=== PATIENT | male | born 1960 | race Caucasian/White ===

== ENCOUNTER 2019-11-03 11:25 | Observation (INO) | payer BC, OTHER ==
[2019-11-03] MEDS ORDERED: Nitroglycerin 2% Oint 1 GM UD Packet TOP ONE (11:34)
[2019-11-03] MEDS ORDERED: Sodium Chloride 0.9% 2.5 ML Syringe FLUSH PRN (11:34)
[2019-11-03] MEDS ORDERED: Sodium Chloride 0.9% 10 ML Syringe FLUSH PRN (11:34)
[2019-11-03] MEDS ORDERED: Aspirin 81 MG Tab.Chew PO ONE (11:34)
--- NOTE | 2019-11-03 11:34 | EDM.PDOC ---
ED HPI GENERAL MEDICAL PROBLEM - General Chief Complaint: Chest Pain Stated Complaint: CHEST PAIN Time Seen by Provider: 11/03/19 11:28 Source of Information: Reports: Patient - History of Present Illness INITIAL COMMENTS - FREE TEXT/NARRATIVE: Patient presents to the ER for the main complaint of chest pain. 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 He is describes a general lightheaded sensation without a headache, and no vertiginous sensation. He continues to just not feel well and soon thereafter he started to develop a central chest pressure like something was squeezing him on the inside with shortness of breath. No fevers or chills, no coughing, no abdominal pain, no palpitations, no other acute complaints. Bystanders gave the patient 1 low- dose aspirin and then his drove him here. Symptoms started about 45 minutes prior to arrival. He has never had anything like this before. - Related Data Allergies Allergy/AdvReac Type Severity Reaction Status Date / Time No Known Allergies Allergy Verified 11/03/19 11:28 Home Meds: Home Meds Rosuvastatin [Crestor] 10 mg PO DAILY 11/03/19 [History] metFORMIN [Glucophage XR] 500 mg PO BIDMEALS 11/03/19 [History] ED ROS GENERAL - Review of Systems Review Of Systems: See Below Free Text/Narrative/Comment: Positive for chest pain, positive shortness of breath, positive for lightheadedness, negative for fevers, negative for chills, negative for cough, negative for hemoptysis, all other Positives and pertinent negatives as per HPI. All other pertinent systems were reviewed and are negative ED EXAM, GENERAL - Physical Exam Exam: See Below Free Text/Narrative:: Constitutional: Nontoxic but looks like he does not feel well, appears very uncomfortable HEENT.: Normocephalic, PERRL, EOMI, External ears are atraumatic, nares are patent without epistaxis Neck: Normal range of motion, Trachea Midline, No stridor Respiratory.: No respiratory distress, No tachypnea, Lungs Clear to Auscultation bilaterally without wheezes, rales, or rhonchi Cardiovascular.: Regular rate and Rhythm without murmurs, rubs, or gallops, good peripheral perfusion GI: Abdomen soft and non tender, no masses, no rebound, rigidity, or guarding, mildly obese Genital Urinary: Deferred Musculoskeletal: Good range of motion. All 4 extremities present and atraumatic , no edema Back: Full Range of Motion Skin: Warm, Dry, Color is ethnicity appropriate, No acute rash. Lymphatic: No lymphadenopathy noted Neurological: Alert, Awake and oriented x 3, No focal deficits noted appreciate , GCS 15 Psych: Affect, Judgement, mood normal Course - Vital Signs Text/Narrative:: The patient's lungs are clear, he is bradycardic, without any cough or anything else to suggest pulmonary problems such as a pneumonia, pneumothorax, pulmonary embolism, etc. Patient does have a heart score of 5, at the very least he is a moderate risk for acute coronary syndrome. ECG The ECG was read and interpreted by me. There are p waves before every QRS with a ventricular rate of 54. The CO, QRS, and QT intervals are all normal. [place] is normal. ST segments are baseline and the T wave morphology is normal. Final interpretation is a normal Sinus rhythm and a normal ECG. X-rays are reviewed and interpreted by me -are no pulmonary infiltrates, pleural effusions, thoracic mass or any acute pathology. Has received nitro and the chest pain is gone with 1 inch of nitro paste. Thing above in the negative troponin the patient will be admitted for observation for chest pain rule out and reevaluation and treatment as appropriate. Critical care time less than 30 minutes Last Recorded V/S: Last Vital Signs Temp 36.3 C 11/03/19 11:30 Pulse 56 L 11/03/19 11:30 Resp 22 H 11/03/19 11:30 BP 161/79 H 11/03/19 11:30 Pulse Ox 100 11/03/19 11:30 - Orders/Labs/Meds Orders: Active Orders 24 hr Category Date Time Status Admission Status [Patient Status] [ADT] Stat ADT 11/03/19 12:47 Active Cardiac Monitoring [RC] . DIRECTED Care 11/03/19 11:34 Ordered EKG Documentation Completion [RC] STAT Care 11/03/19 11:34 Ordered Pulse Oximetry [RC] ASDIRECTED Care 11/03/19 11:34 Ordered Sodium Chloride 0.9% [Saline Flush] Med 11/03/19 11:34 Ordered 10 ml FLUSH ASDIRECTED PRN Sodium Chloride 0.9% [Saline Flush] Med 11/03/19 11:34 Ordered 2.5 ml FLUSH ASDIRECTED PRN Saline Lock Insert [OM.PC] Stat Oth 11/03/19 11:34 Ordered Medication Orders Sodium Chloride (Saline Flush) 10 ml FLUSH ASDIRECTED PRN PRN Reason: Keep Vein Open Last Admin: 11/03/19 11:51 Dose: 10 ml Sodium Chloride (Saline Flush) 2.5 ml FLUSH ASDIRECTED PRN PRN Reason: Keep Vein Open Last Admin: 11/03/19 11:51 Dose: 2.5 ml Labs: Laboratory Tests 11/03/19 11/03/19 Range/Units 11:30 11:30 WBC 5.93 (4.0-11.0) K/uL RBC 4.92 (4.50-5.90) M/uL Hgb 14.8 (13.0-17.0) g/dL Hct 43.7 (38.0-50.0) % MCV 88.8 (80.0-98.0) fL MCH 30.1 (27.0-32.0) pg MCHC 33.9 (31.0-37.0) g/dL RDW Std Deviation 40.7 (28.0-62.0) fl RDW Coeff of Alissa 13 (11.0-15.0) % Plt Count 181 (150-400) K/uL MPV 10.10 (7.40-12.00) fL Neut % (Auto) 48.1 (48.0-80.0) % Lymph % (Auto) 41.7 H (16.0-40.0) % [place] % (Auto) 6.7 (0.0-15.0) % Eos % (Auto) 3.0 (0.0-7.0) % Baso % (Auto) 0.5 (0.0-1.5) % Neut # (Auto) 2.9 (1.4-5.7) K/uL Lymph # (Auto) 2.5 H (0.6-2.4) K/uL [place] # (Auto) 0.4 (0.0-0.8) K/uL Eos # (Auto) 0.2 (0.0-0.7) K/uL Baso # (Auto) 0.0 (0.0-0.1) K/uL Nucleated RBC % 0.0 /100WBC Nucleated RBCs # 0 K/uL Sodium 138 (136-148) mmol/L Potassium 3.8 (3.5-5.1) mmol/L Chloride 101 (98-107) mmol/L Carbon Dioxide 26.8 (21.0-32.0) mmol/L BUN 13 (7.0-18.0) mg/dL Creatinine 1.2 (0.8-1.3) mg/dL Est Cr Clr Drug Dosing 62.54 mL/min Estimated GFR (MDRD) > 60.0 ml/min Glucose 140 H (74-106) mg/dL Calcium 9.5 (8.5-10.1) mg/dL Total Bilirubin 0.6 (0.2-1.0) mg/dL AST 28 (15-37) IU/L ALT 56 (14-63) IU/L Alkaline Phosphatase 64 (46-116) U/L Troponin I < 0.050 (0.000-0.056) ng/mL Total Protein 7.8 (6.4-8.2) g/dL Albumin 4.3 (3.4-5.0) g/dL Globulin 3.5 (2.6-4.0) g/dL Albumin/Globulin Ratio 1.2 (0.9-1.6) Meds: Medications Generic Name Dose Route Start Last Admin Trade Name Paul PRN Reason Stop Dose Admin Sodium Chloride 10 ml 11/03/19 11:34 11/03/19 11:51 Saline Flush FLUSH 10 ml ASDIRECTED PRN Administration Keep Vein Open Sodium Chloride 2.5 ml 11/03/19 11:34 11/03/19 11:51 Saline Flush FLUSH 2.5 ml ASDIRECTED PRN Administration Keep Vein Open Discontinued Medications Generic Name Dose Route Start Last Admin Trade Name Freq PRN Reason Stop Dose Admin Aspirin 324 mg 11/03/19 11:34 11/03/19 11:51 Aspirin PO 11/03/19 11:35 324 mg ONETIME ONE Administration Nitroglycerin 1 gm 11/03/19 11:34 11/03/19 11:51 Nitro-Bid 2% TOP 11/03/19 11:35 1 gm ONETIME ONE Administration Departure - Departure Time of Disposition: 12:49 Disposition: Refer to Observation Condition: Good Clinical Impression: Chest pain Forms: ED Department Discharge Sepsis Event Note - Focused Exam Vital Signs: Vital Signs Temp Pulse Resp BP Pulse Ox 11/03/19 11:30 36.3 C 56 L 22 H 161/79 H 100 Date Exam was Performed: 11/03/19 Time Exam was Performed: 12:48 - My Orders Last 24 Hours: My Active Orders 11/03/19 11:34 Cardiac Monitoring [RC] . DIRECTED EKG Documentation Completion [RC] STAT Pulse Oximetry [RC] ASDIRECTED Sodium Chloride 0.9% [Saline Flush] 10 ml FLUSH ASDIRECTED PRN Sodium Chloride 0.9% [Saline Flush] 2.5 ml FLUSH ASDIRECTED PRN Saline Lock Insert [OM.PC] Stat 11/03/19 12:47 Admission Status [Patient Status] [ADT] Stat - Assessment/Plan Last 24 Hours: My Active Orders 11/03/19 11:34 Cardiac Monitoring [RC] . DIRECTED EKG Documentation Completion [RC] STAT Pulse Oximetry [RC] ASDIRECTED Sodium Chloride 0.9% [Saline Flush] 10 ml FLUSH ASDIRECTED PRN Sodium Chloride 0.9% [Saline Flush] 2.5 ml FLUSH ASDIRECTED PRN Saline Lock Insert [OM.PC] Stat 11/03/19 12:47 Admission Status [Patient Status] [ADT] Stat
[2019-11-03 12:25] LABS: BLOOD UREA NITROGEN,BUN 13 mg/dL (7.0-18.0); CARBON DIOXIDE,CO2 26.8 mmol/L (21.0-32.0); CHLORIDE,CL 101 mmol/L (98-107); GLUCOSE RANDOM 140 mg/dL (74-106); POTASSIUM,K 3.8 mmol/L (3.5-5.1); SODIUM,NA 138 mmol/L (136-148)
--- NOTE | 2019-11-03 12:26 | CR ---
Chest: Portable view of the chest was obtained. Comparison: Prior chest x-ray of 12/10/07. Heart size and mediastinum are within normal limits for portable technique. Lungs are clear with no acute parenchymal change. Bony structures are grossly intact. Impression: 1. Nothing acute is seen on portable chest x-ray. Diagnostic code #1 This report was dictated in [place] Standard Time
[2019-11-03] MEDS ORDERED: Ondansetron 4 MG/2 ML SDV IVPUSH PRN (13:27)
--- NOTE | 2019-11-03 13:45 | PCM.HP.2 ---
H&P History of Present Illness - General Date of Service: 11/03/19 Admit Problem/Dx: Admission Diagnosis/Problem Admission Diagnosis/Problem Chest pain Source of Information: Patient History Limitations: Reports: No Limitations - History of Present Illness Initial Comments - Free Text/Narative: This 59 year old male with dyslipidemia and DM type 2 presented to the ED today by private vehicle with complaints of near- syncope and chest pain. 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 He reports he felt like he was unable to comprehend what was going on and wasn't able to think right. He felt lightheaded and had to sit down. The class noticed he was acting off and he knew they were asking if he was ok. He was then able to walk out and grab a friend to take over and call his . At this point he started having retrosternal chest pain and felt SOB. He was given ASA by a bystander and came to the ED with his . He reports this has happened in the past, but not to this severity. He has no history of CAD, reports family history of it as well as CVA. He reports never having hypoglycemia. He only drank coffee this morning otherwise no food. He denies abdominal pain, urinary concerns or black and blood bowel movements. He reports history of tobacco use, quit 20 years ago, no alcohol use and no recreational drug use. Reports stress test in 2017, which was negative. In the ED labwork WNL, glucose elevated at 140. Troponin negative. EKG SR with no ST elevation. On the monitor pulse is noted 50-60s, which patient reports is normal for him. CXR negative. He was given ASA and Nitro paste was placed in the ED. He will be admitted for chest pain rule out ACS and near-syncope. Chest pain Pain Score (Numeric/FACES): 3 - Related Data Allergies/Adverse Reactions: Allergies Allergy/AdvReac Type Severity Reaction Status Date / Time No Known Allergies Allergy Verified 11/03/19 11:28 Home Medications: Home Meds Rosuvastatin [Crestor] 10 mg PO DAILY 11/03/19 [History] metFORMIN [Glucophage XR] 500 mg PO BIDMEALS 11/03/19 [History] Past Medical History Cardiovascular History: Reports: None, High Cholesterol. Denies: Afib, Blood Clots/VTE/DVT, CAD, Heart Failure, Hypertension, Stents, Syncope Respiratory History: Reports: None. Denies: COPD Gastrointestinal History: Reports: None Genitourinary History: Reports: None Musculoskeletal History: Reports: Fracture Other Musculoskeletal History: neck Endocrine/Metabolic History: Reports: Diabetes, Type II - Infectious Disease History Infectious Disease History: Reports: C-Difficile, Measles, Mumps - Past Surgical History GI Surgical History: Reports: Appendectomy Social & Family History - Family History Family Medical History: Noncontributory - Tobacco Use Smoking Status *Q: Never Smoker Second Hand Smoke Exposure: No - Caffeine Use Caffeine Use: Reports: Coffee - Alcohol Use Alcohol Use History: No - Recreational Drug Use Recreational Drug Use: No H&P Review of Systems - Review of Systems: Review Of Systems: Comprehensive ROS is negative, except as noted in HPI. General: Reports: No Symptoms. Denies: Fever, Chills, Malaise HEENT: Reports: Other (head still feels foggy). Denies: Headaches, Sinus Congestion, Vertigo Pulmonary: Reports: No Symptoms. Denies: Shortness of Breath Cardiovascular: Reports: Chest Pain (but now resolved.) Gastrointestinal: Reports: No Symptoms. Denies: Abdominal Pain, Black Stool, Bloody Stool Genitourinary: Reports: No Symptoms. Denies: Dysuria, Frequency Musculoskeletal: Reports: No Symptoms Psychiatric: Reports: No Symptoms Neurological: Reports: Dizziness. Denies: Seizure Hematologic/Lymphatic: Reports: No Symptoms Immunologic: Reports: No Symptoms Exam - Exam Exam: See Below - Vital Signs Vital Signs: Last Vital Signs Temp 97.4 F 11/03/19 11:30 Pulse 54 L 11/03/19 12:42 Resp 18 11/03/19 12:42 BP 129/74 11/03/19 12:42 Pulse Ox 97 11/03/19 12:42 Weight: 97.069 kg - Exam General: Alert, Oriented, Cooperative HEENT: Conjunctiva Clear, Pupils Equal Neck: Supple, +2 Carotid Pulse wo Bruit Lungs: Clear to Auscultation, Normal Respiratory Effort Cardiovascular: Regular Rate, Regular Rhythm GI/Abdominal Exam: Normal Bowel Sounds, Soft, Non-Tender Back Exam: Normal Inspection, Full Range of Motion Extremities: Normal Range of Motion, Non-Tender, No Pedal Edema Neurological: Cranial Nerves Intact Neuro Extensive - Mental Status: Alert, Oriented x3, Normal Mood/Affect Psychiatric: Alert, Normal Affect, Hallucinations - Patient Data Lab Results Last 24 hrs: Laboratory Results - last 24 hr 11/03/19 11/03/19 Range/Units 11:30 11:30 WBC 5.93 (4.0-11.0) K/uL RBC 4.92 (4.50-5.90) M/uL Hgb 14.8 (13.0-17.0) g/dL Hct 43.7 (38.0-50.0) % MCV 88.8 (80.0-98.0) fL MCH 30.1 (27.0-32.0) pg MCHC 33.9 (31.0-37.0) g/dL RDW Std Deviation 40.7 (28.0-62.0) fl RDW Coeff of Alissa 13 (11.0-15.0) % Plt Count 181 (150-400) K/uL MPV 10.10 (7.40-12.00) fL Neut % (Auto) 48.1 (48.0-80.0) % Lymph % (Auto) 41.7 H (16.0-40.0) % [place] % (Auto) 6.7 (0.0-15.0) % Eos % (Auto) 3.0 (0.0-7.0) % Baso % (Auto) 0.5 (0.0-1.5) % Neut # (Auto) 2.9 (1.4-5.7) K/uL Lymph # (Auto) 2.5 H (0.6-2.4) K/uL [place] # (Auto) 0.4 (0.0-0.8) K/uL Eos # (Auto) 0.2 (0.0-0.7) K/uL Baso # (Auto) 0.0 (0.0-0.1) K/uL Nucleated RBC % 0.0 /100WBC Nucleated RBCs # 0 K/uL Sodium 138 (136-148) mmol/L Potassium 3.8 (3.5-5.1) mmol/L Chloride 101 (98-107) mmol/L Carbon Dioxide 26.8 (21.0-32.0) mmol/L BUN 13 (7.0-18.0) mg/dL Creatinine 1.2 (0.8-1.3) mg/dL Est Cr Clr Drug Dosing 62.54 mL/min Estimated GFR (MDRD) > 60.0 ml/min Glucose 140 H (74-106) mg/dL Calcium 9.5 (8.5-10.1) mg/dL Total Bilirubin 0.6 (0.2-1.0) mg/dL AST 28 (15-37) IU/L ALT 56 (14-63) IU/L Alkaline Phosphatase 64 (46-116) U/L Troponin I < 0.050 (0.000-0.056) ng/mL Total Protein 7.8 (6.4-8.2) g/dL Albumin 4.3 (3.4-5.0) g/dL Globulin 3.5 (2.6-4.0) g/dL Albumin/Globulin Ratio 1.2 (0.9-1.6) Result Diagrams: 11/03/19 11:30 11/03/19 11:30 EKG INTERPRETATION EKG Date: 11/03/19 Rhythm: NSR P-Wave: Present QRS: Normal ST-T: Normal QT: Normal Sepsis Event Note - Evaluation Sepsis Screening Result: No Definite Risk - Focused Exam Vital Signs: Vital Signs Temp Pulse Resp BP Pulse Ox 11/03/19 12:42 54 L 18 129/74 97 11/03/19 12:12 55 L 18 136/71 95 11/03/19 11:30 97.4 F 56 L 22 H 161/79 H 100 Date Exam was Performed: 11/03/19 Time Exam was Performed: 13:32 - Problem List (1) Chest pain SNOMED Code(s): 70778753 ICD Code: R07.9 - CHEST PAIN, UNSPECIFIED Status: Acute Current Visit: Yes (2) Near syncope SNOMED Code(s): 187491493 ICD Code: R55 - SYNCOPE AND COLLAPSE Status: Acute Current Visit: Yes (3) Type 2 diabetes mellitus SNOMED Code(s): 84014949 ICD Code: E11.9 - TYPE 2 DIABETES MELLITUS WITHOUT COMPLICATIONS Status: Chronic Current Visit: Yes (4) Dyslipidemia SNOMED Code(s): 352002717 ICD Code: E78.5 - HYPERLIPIDEMIA, UNSPECIFIED Status: Chronic Current Visit: Yes Problem List Initiated/Reviewed/Updated: Yes Orders Last 24hrs: Active Orders 24 hr Category Date Time Status Admission Status [Patient Status] [ADT] Stat ADT 11/03/19 12:47 Active Blood Glucose Check, Bedside [RC] TIDAC Care 11/03/19 13:31 Ordered Cardiac Monitoring [RC] . DIRECTED Care 11/03/19 11:34 Active Communication Order [RC] ROUTINE Care 11/03/19 13:30 Ordered Intake and Output [RC] QSHIFT Care 11/03/19 13:27 Ordered Orthostatic Vital Signs [RC] ASDIRECTED Care 11/03/19 13:31 Ordered Oxygen Therapy [RC] PRN Care 11/03/19 13:27 Ordered Telemetry Monitoring [Cardiac Monitoring] [RC] . Care 11/03/19 13:30 Ordered DIRECTED Up With Assistance [RC] ASDIRECTED Care 11/03/19 13:27 Ordered VTE/DVT Education [RC] PER UNIT ROUTINE Care 11/03/19 13:27 Ordered Vital Signs [RC] Q4H Care 11/03/19 13:27 Ordered Heart Healthy Diet [DIET] Diet 11/03/19 Lunch Ordered Head wo Cont [CT] Urgent Exams 11/03/19 13:27 Ordered Acetaminophen [Tylenol] Med 11/03/19 13:27 Ordered 650 mg PO Q4H PRN Insulin Aspart [NovoLOG] Med 11/03/19 17:00 Ordered See Protocol SUBCUT TIDAC Ondansetron [Zofran] Med 11/03/19 13:27 Ordered 4 mg IVPUSH Q4H PRN Sodium Chloride 0.9% [Saline Flush] Med 11/03/19 11:34 Active 10 ml FLUSH ASDIRECTED PRN Sodium Chloride 0.9% [Saline Flush] Med 11/03/19 11:34 Active 2.5 ml FLUSH ASDIRECTED PRN Saline Lock Insert [OM.PC] Stat Oth 11/03/19 11:34 Ordered Resuscitation Status Routine Resus Stat 11/03/19 13:27 Ordered Medication Orders Acetaminophen (Tylenol) 650 mg PO Q4H PRN PRN Reason: Pain (mild 1-3) Insulin Aspart (Novolog) 0 unit SUBCUT TIDAC TOÑO; Protocol Ondansetron HCl (Zofran) 4 mg IVPUSH Q4H PRN PRN Reason: Nausea Sodium Chloride (Saline Flush) 10 ml FLUSH ASDIRECTED PRN PRN Reason: Keep Vein Open Last Admin: 11/03/19 11:51 Dose: 10 ml Sodium Chloride (Saline Flush) 2.5 ml FLUSH ASDIRECTED PRN PRN Reason: Keep Vein Open Last Admin: 11/03/19 11:51 Dose: 2.5 ml Assessment/Plan Comment:: This 59 year old male admitted with chest and near syncope 1. Chest pain: Will trend troponins and monitor on Telemetry. Obtain lipid panel and A1c to monitor treatment of these. Is already on statin and known DM. Will need outpatient stress test. 2. Near syncope: Will obtain head CT and orthostatic VS. Monitor on telemetry for arrhythmia. May consider Zio patch on discharge. No beta snehal for home medications. 3. DM Type 2: Hold PO medications, give Novolog SSI with meals TIDAC. Continue Lisinopril for renal protection. Continue statin. VTE prophylaxis: SCDs Dispo: 1 day - Mortality Measure Prognosis:: Good
--- NOTE | 2019-11-03 15:25 | CT ---
Head CT Technique: Multiple axial sections through the brain were obtained. Intravenous contrast was not utilized. Comparison: No prior intracranial imaging is available. Findings: Ventricles along with basal cisterns and sulci over the convexities are within normal limits for the patient's age. No abnormal parenchymal densities are seen. No evidence of intracranial hemorrhage. No midline shift or mass effect is appreciated. Bone window settings were reviewed which shows mild mucosal thickening within the ethmoid and within both maxillary sinuses. Mastoid sinuses are clear. No acute calvarial abnormality is appreciated. Mild atherosclerotic calcification is seen within the carotid siphon. Impression: 1. Sinus findings most likely chronic. Minimal senescent change. 2. No acute intracranial abnormality is appreciated. Diagnostic code #2 Study was dictated in [place] Standard Time
[2019-11-03 16:21] LABS: HEMOGLOBIN A1C 6.5 % (4.5-6.2)
[2019-11-03] MEDS: Insulin Aspart 100 Units/ML 3 ML Pen SUBCUT SCH (17:13)
[2019-11-03] MEDS: Acetaminophen 325 MG Tab PO PRN (17:18)
[2019-11-03] MEDS ORDERED: Lisinopril 5 MG Tab PO SCH (21:00)
[2019-11-04] MEDS: Acetaminophen 325 MG Tab PO PRN (00:13)
[2019-11-04] MEDS: Insulin Aspart 100 Units/ML 3 ML Pen SUBCUT SCH (06:35)
[2019-11-04] MEDS: Rosuvastatin 10 MG Tab PO SCH ×2 (08:33→08:42)
[2019-11-04] MEDS ORDERED: Aspirin 81 MG Tab.Chew PO SCH (09:00)
--- NOTE | 2019-11-04 10:47 | PCM.DCSUM1 ---
<Betsy Leyva - Last Filed: 11/04/19 11:03> Discharge Summary - Hospital Course Brief History: This 59 year old male with dyslipidemia and DM type 2 presented to the ED today by private vehicle with complaints of near- syncope and chest pain. 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 He reports he felt like he was unable to comprehend what was going on and wasn't able to think right. He felt lightheaded and had to sit down. The class noticed he was acting off and he knew they were asking if he was ok. He was then able to walk out and grab a friend to take over and call his . At this point he started having retrosternal chest pain and felt SOB. He was given ASA by a bystander and came to the ED with his . He reports this has happened in the past, but not to this severity. He has no history of CAD, reports family history of it as well as CVA. He reports never having hypoglycemia. He only drank coffee this morning otherwise no food. He denies abdominal pain, urinary concerns or black and blood bowel movements. He reports history of tobacco use, quit 20 years ago, no alcohol use and no recreational drug use. Reports stress test in 2017, which was negative. In the ED labwork WNL, glucose elevated at 140. Troponin negative. EKG SR with no ST elevation. On the monitor pulse is noted 50-60s, which patient reports is normal for him. CXR negative. He was given ASA and Nitro paste was placed in the ED. He will be admitted for chest pain rule out ACS and near-syncope. Diagnosis: Stroke: No - Discharge Data Discharge Date: 11/04/19 Discharge Disposition: Home, Self-Care 01 Condition: Good - Referral to Home Health Primary Care Physician: Colt Alarcon MD - Discharge Diagnosis/Problem(s) (1) Chest pain SNOMED Code(s): 18677921 ICD Code: R07.9 - CHEST PAIN, UNSPECIFIED Status: Acute (2) Near syncope SNOMED Code(s): 675756944 ICD Code: R55 - SYNCOPE AND COLLAPSE Status: Acute (3) Type 2 diabetes mellitus SNOMED Code(s): 80667880 ICD Code: E11.9 - TYPE 2 DIABETES MELLITUS WITHOUT COMPLICATIONS Status: Chronic (4) Dyslipidemia SNOMED Code(s): 823878041 ICD Code: E78.5 - HYPERLIPIDEMIA, UNSPECIFIED Status: Chronic - Patient Instructions Diet: Heart Healthy Diet, Diabetic Diet Activity: No Strenuous Activities Driving: May Drive Today Showering/Bathing: May Shower Notify Provider of: Fever, Increased Pain, Swelling and Redness, Drainage, Nausea and/or Vomiting Other/Special Instructions: Perscription for Glucometer sent, test blood sugar 1 -2 times per week, fasting in the morning. Or as needed for feelings of low blood sugar. - Discharge Plan *PRESCRIPTION DRUG MONITORING PROGRAM REVIEWED*: Not Applicable *COPY OF PRESCRIPTION DRUG MONITORING REPORT IN PATIENT HALIE: Not Applicable Home Medications: Home Meds Lisinopril [Zestril] 2.5 mg PO BEDTIME 11/03/19 [History] Rosuvastatin [Crestor] 10 mg PO BEDTIME 11/03/19 [History] metFORMIN [Glucophage XR] 500 mg PO BEDTIME 11/03/19 [History] Aspirin 81 mg PO DAILY tab.chew 11/04/19 [Rx] Oxygen Therapy Mode: Room Air Patient Handouts: Near-Syncope, [id number], Nonspecific Chest Pain, Easy-to- Read, Cardiopulmonary Exercise Stress Test, [id number], Blood Glucose Monitoring, Adult Referrals: Colt Alarcon MD [Primary Care Provider] - 11/10/19 10:15 am - Discharge Summary/Plan Comment DC Time >30 min.: No Discharge Summary/Plan Comment: Admitting Diagnoses: Chest pain Near syncope Discharge Diagnoses: Chest pain-resolved Near syncope Other PMH: Borderline DM Dyslipidemia Jovi was admitted for episode of near syncope with chest pain. Troponins trended , which were negative and EKG SR to SB with no ST elevation. ACS ruled out. Telemetry showed no arrhythmia or block for cause of near syncope. We did discuss causes which could include hypoglycemia, since he had not eaten in over 14 hours and only drank coffee. Because of this I will send home a glucose meter to monitor fasting BS 1-2 days a week and PRN for hypoglycemia feeling. I will also place ZIO patch to evaluate for arrhythmia. He will be arranged for outpatient stress test as well. No further events overnight, BP well controlled with no medications. He is to return to ED or clinic if concerns should arise. No change to home medications and to follow with PCP in 1 week. - Patient Data Vitals - Most Recent: Last Vital Signs Temp 98.1 F 11/04/19 08:00 Pulse 57 L 11/04/19 08:00 Resp 16 11/04/19 08:00 BP 112/71 11/04/19 08:00 Pulse Ox 96 11/04/19 08:00 Orthostatic Blood Pressure [ 117/68 Standing] Orthostatic Blood Pressure [ 100/59 Sitting] Orthostatic Blood Pressure [ 93/56 Supine] Weight - Most Recent: 97.069 kg I&O - Last 24 hours: Intake & Output 11/03/19 11/04/19 11/04/19 22:59 06:59 14:59 Intake Total 240 600 Output Total 0 950 Balance 240 -350 Lab Results - Last 24 hrs: Laboratory Results - last 24 hr 11/03/19 11/03/19 11/03/19 Range/Units 11:30 11:30 11:30 WBC 5.93 (4.0-11.0) K/uL RBC 4.92 (4.50-5.90) M/uL Hgb 14.8 (13.0-17.0) g/dL Hct 43.7 (38.0-50.0) % MCV 88.8 (80.0-98.0) fL MCH 30.1 (27.0-32.0) pg MCHC 33.9 (31.0-37.0) g/dL RDW Std Deviation 40.7 (28.0-62.0) fl RDW Coeff of Alissa 13 (11.0-15.0) % Plt Count 181 (150-400) K/uL MPV 10.10 (7.40-12.00) fL Neut % (Auto) 48.1 (48.0-80.0) % Lymph % (Auto) 41.7 H (16.0-40.0) % Cowley % (Auto) 6.7 (0.0-15.0) % Eos % (Auto) 3.0 (0.0-7.0) % Baso % (Auto) 0.5 (0.0-1.5) % Neut # (Auto) 2.9 (1.4-5.7) K/uL Lymph # (Auto) 2.5 H (0.6-2.4) K/uL Cowley # (Auto) 0.4 (0.0-0.8) K/uL Eos # (Auto) 0.2 (0.0-0.7) K/uL Baso # (Auto) 0.0 (0.0-0.1) K/uL Nucleated RBC % 0.0 /100WBC Nucleated RBCs # 0 K/uL Sodium 138 (136-148) mmol/L Potassium 3.8 (3.5-5.1) mmol/L Chloride 101 (98-107) mmol/L Carbon Dioxide 26.8 (21.0-32.0) mmol/L BUN 13 (7.0-18.0) mg/dL Creatinine 1.2 (0.8-1.3) mg/dL Est Cr Clr Drug Dosing 62.54 mL/min Estimated GFR (MDRD) > 60.0 ml/min Glucose 140 H (74-106) mg/dL POC Glucose (60-110) mg/dL Hemoglobin A1c 6.5 H (4.5-6.2) % Calcium 9.5 (8.5-10.1) mg/dL Total Bilirubin 0.6 (0.2-1.0) mg/dL AST 28 (15-37) IU/L ALT 56 (14-63) IU/L Alkaline Phosphatase 64 (46-116) U/L Troponin I < 0.050 (0.000-0.056) ng/mL Total Protein 7.8 (6.4-8.2) g/dL Albumin 4.3 (3.4-5.0) g/dL Globulin 3.5 (2.6-4.0) g/dL Albumin/Globulin Ratio 1.2 (0.9-1.6) Triglycerides (0-200) mg/dL Cholesterol (50-200) mg/dL LDL Cholesterol, Calc (60-180) mg/dL VLDL Cholesterol (5-55) mg/dL HDL Cholesterol (40-60) mg/dL Cholesterol/HDL Ratio (3.3-6.0) TSH 3rd Generation (0.36-3.74) uIU/mL 11/03/19 11/03/19 11/03/19 Range/Units 11:30 17:08 17:38 WBC (4.0-11.0) K/uL RBC (4.50-5.90) M/uL Hgb (13.0-17.0) g/dL Hct (38.0-50.0) % MCV (80.0-98.0) fL MCH (27.0-32.0) pg MCHC (31.0-37.0) g/dL RDW Std Deviation (28.0-62.0) fl RDW Coeff of Alissa (11.0-15.0) % Plt Count (150-400) K/uL MPV (7.40-12.00) fL Neut % (Auto) (48.0-80.0) % Lymph % (Auto) (16.0-40.0) % Cowley % (Auto) (0.0-15.0) % Eos % (Auto) (0.0-7.0) % Baso % (Auto) (0.0-1.5) % Neut # (Auto) (1.4-5.7) K/uL Lymph # (Auto) (0.6-2.4) K/uL Cowley # (Auto) (0.0-0.8) K/uL Eos # (Auto) (0.0-0.7) K/uL Baso # (Auto) (0.0-0.1) K/uL Nucleated RBC % /100WBC Nucleated RBCs # K/uL Sodium (136-148) mmol/L Potassium (3.5-5.1) mmol/L Chloride (98-107) mmol/L Carbon Dioxide (21.0-32.0) mmol/L BUN (7.0-18.0) mg/dL Creatinine (0.8-1.3) mg/dL Est Cr Clr Drug Dosing mL/min Estimated GFR (MDRD) ml/min Glucose (74-106) mg/dL POC Glucose 119 H (60-110) mg/dL Hemoglobin A1c (4.5-6.2) % Calcium (8.5-10.1) mg/dL Total Bilirubin (0.2-1.0) mg/dL AST (15-37) IU/L ALT (14-63) IU/L Alkaline Phosphatase (46-116) U/L Troponin I < 0.050 (0.000-0.056) ng/mL Total Protein (6.4-8.2) g/dL Albumin (3.4-5.0) g/dL Globulin (2.6-4.0) g/dL Albumin/Globulin Ratio (0.9-1.6) Triglycerides (0-200) mg/dL Cholesterol (50-200) mg/dL LDL Cholesterol, Calc (60-180) mg/dL VLDL Cholesterol (5-55) mg/dL HDL Cholesterol (40-60) mg/dL Cholesterol/HDL Ratio (3.3-6.0) TSH 3rd Generation 1.90 (0.36-3.74) uIU/mL 11/03/19 11/04/19 11/04/19 Range/Units 23:30 05:32 06:18 WBC (4.0-11.0) K/uL RBC (4.50-5.90) M/uL Hgb (13.0-17.0) g/dL Hct (38.0-50.0) % MCV (80.0-98.0) fL MCH (27.0-32.0) pg MCHC (31.0-37.0) g/dL RDW Std Deviation (28.0-62.0) fl RDW Coeff of Alissa (11.0-15.0) % Plt Count (150-400) K/uL MPV (7.40-12.00) fL Neut % (Auto) (48.0-80.0) % Lymph % (Auto) (16.0-40.0) % Cowley % (Auto) (0.0-15.0) % Eos % (Auto) (0.0-7.0) % Baso % (Auto) (0.0-1.5) % Neut # (Auto) (1.4-5.7) K/uL Lymph # (Auto) (0.6-2.4) K/uL Cowley # (Auto) (0.0-0.8) K/uL Eos # (Auto) (0.0-0.7) K/uL Baso # (Auto) (0.0-0.1) K/uL Nucleated RBC % /100WBC Nucleated RBCs # K/uL Sodium (136-148) mmol/L Potassium (3.5-5.1) mmol/L Chloride (98-107) mmol/L Carbon Dioxide (21.0-32.0) mmol/L BUN (7.0-18.0) mg/dL Creatinine (0.8-1.3) mg/dL Est Cr Clr Drug Dosing mL/min Estimated GFR (MDRD) ml/min Glucose (74-106) mg/dL POC Glucose 101 (60-110) mg/dL Hemoglobin A1c (4.5-6.2) % Calcium (8.5-10.1) mg/dL Total Bilirubin (0.2-1.0) mg/dL AST (15-37) IU/L ALT (14-63) IU/L Alkaline Phosphatase (46-116) U/L Troponin I < 0.050 (0.000-0.056) ng/mL Total Protein (6.4-8.2) g/dL Albumin (3.4-5.0) g/dL Globulin (2.6-4.0) g/dL Albumin/Globulin Ratio (0.9-1.6) Triglycerides 93 (0-200) mg/dL Cholesterol 122 (50-200) mg/dL LDL Cholesterol, Calc 66 (60-180) mg/dL VLDL Cholesterol 18 (5-55) mg/dL HDL Cholesterol 37 L (40-60) mg/dL Cholesterol/HDL Ratio 3.3 (3.3-6.0) TSH 3rd Generation (0.36-3.74) uIU/mL Med Orders - Current: Current Medications Acetaminophen (Tylenol) 650 mg PO Q4H PRN PRN Reason: Pain (mild 1-3) Last Admin: 11/04/19 00:13 Dose: 650 mg Aspirin (Aspirin) 81 mg PO DAILY [facility] Last Admin: 11/04/19 08:33 Dose: 81 mg Insulin Aspart (Novolog) 0 unit SUBCUT TIDAC [facility]; Protocol Last Admin: 11/04/19 06:35 Dose: Not Given Lisinopril (Prinivil) 2.5 mg PO BEDTIME [facility] Last Admin: 11/03/19 20:37 Dose: 2.5 mg Ondansetron HCl (Zofran) 4 mg IVPUSH Q4H PRN PRN Reason: Nausea Rosuvastatin Calcium (Crestor) 10 mg PO DAILY [facility] Last Admin: 11/04/19 08:42 Dose: Not Given Sodium Chloride (Saline Flush) 10 ml FLUSH ASDIRECTED PRN PRN Reason: Keep Vein Open Last Admin: 11/03/19 11:51 Dose: 10 ml Sodium Chloride (Saline Flush) 2.5 ml FLUSH ASDIRECTED PRN PRN Reason: Keep Vein Open Last Admin: 11/03/19 11:51 Dose: 2.5 ml Discontinued Medications Aspirin (Aspirin) 324 mg PO ONETIME ONE Stop: 11/03/19 11:35 Last Admin: 11/03/19 11:51 Dose: 324 mg Nitroglycerin (Nitro-Bid 2%) 1 gm TOP ONETIME ONE Stop: 11/03/19 11:35 Last Admin: 11/03/19 11:51 Dose: 1 gm <Alex Deal - Last Filed: 11/10/19 10:46> Discharge Summary - Referral to [facility] Primary Care Physician: Colt Alarcon MD - Patient Data Vitals - Most Recent: Last Vital Signs Temp 36.7 C 11/04/19 08:00 Pulse 57 L 11/04/19 08:00 Resp 16 11/04/19 08:00 BP 112/71 11/04/19 08:00 Pulse Ox 96 11/04/19 08:00 Orthostatic Blood Pressure [ 117/68 Standing] Orthostatic Blood Pressure [ 100/59 Sitting] Orthostatic Blood Pressure [ 93/56 Supine] Med Orders - Current: Current Medications Discontinued Medications Acetaminophen (Tylenol) 650 mg PO Q4H PRN PRN Reason: Pain (mild 1-3) Last Admin: 11/04/19 00:13 Dose: 650 mg Aspirin (Aspirin) 324 mg PO ONETIME ONE Stop: 11/03/19 11:35 Last Admin: 11/03/19 11:51 Dose: 324 mg Aspirin (Aspirin) 81 mg PO DAILY [facility] Last Admin: 11/04/19 08:33 Dose: 81 mg Insulin Aspart (Novolog) 0 unit SUBCUT TIDAC [facility]; Protocol Last Admin: 11/04/19 06:35 Dose: Not Given Lisinopril (Prinivil) 2.5 mg PO BEDTIME [facility] Last Admin: 11/03/19 20:37 Dose: 2.5 mg Nitroglycerin (Nitro-Bid 2%) 1 gm TOP ONETIME ONE Stop: 11/03/19 11:35 Last Admin: 11/03/19 11:51 Dose: 1 gm Ondansetron HCl (Zofran) 4 mg IVPUSH Q4H PRN PRN Reason: Nausea Rosuvastatin Calcium (Crestor) 10 mg PO DAILY [facility] Last Admin: 11/04/19 08:42 Dose: Not Given Sodium Chloride (Saline Flush) 10 ml FLUSH ASDIRECTED PRN PRN Reason: Keep Vein Open Last Admin: 11/03/19 11:51 Dose: 10 ml Sodium Chloride (Saline Flush) 2.5 ml FLUSH ASDIRECTED PRN PRN Reason: Keep Vein Open Last Admin: 11/03/19 11:51 Dose: 2.5 ml - Free Text/Narrative Note: I have seen and evaluated the patient with the resident. I have discussed findings and treatment plan with the resident. I agree with the assessment and plan in the following note.
== END 2019-11-04 11:27 | disposition home or self-care (01) ==
LOC: MW.ED 11:25 → MW.MS 12:47 → UNDOADMOB 12:53 → MW.MS 12:53 → UNDOADMOB 11-04 10:55 → UNDODISOB 11-04 11:27
PROVIDERS: ADMIT Internal Medicine; ATTEND Internal Medicine
DX: R07.2 Precordial pain (principal); R55 Syncope and collapse; E78.5 Hyperlipidemia, unspecified; E11.9 Type 2 diabetes mellitus without complications; E78.00 Pure hypercholesterolemia, unspecified; Z87.891 Personal history of nicotine dependence
CPT/HCPCS: 36415; 70450; 71045; 80053; 80061; 82962; 83036; 84443; 84484; 85025; 93005; 99285; A9270; G0378; 99284

== ENCOUNTER 2021-01-23 09:15 | Emergency (ER) | payer OTHER ==
--- NOTE | 2021-01-23 09:22 | EDM.PDOC ---
ED HPI GENERAL MEDICAL PROBLEM - General Chief Complaint: General Stated Complaint: REFERRED Time Seen by Provider: 01/23/21 09:17 Source of Information: Reports: Patient History Limitations: Reports: No Limitations - History of Present Illness INITIAL COMMENTS - FREE TEXT/NARRATIVE: 60-year-old male presents from clinic for left lower quadrant pain. Per other physicians report patient has had 3 days of left lower quadrant pain and on exam was found to have guarding and rebound. He did do lab work which revealed a normal white blood cell count and normal renal function. His UA was normal without blood or leukocyte esterase. Patient notes that he has had worsening left lower quadrant pain over the last 3 days. He denies any associated nausea, vomiting, diarrhea, constipation. No GI bleeding. Denies fevers. He notes that he had a colonoscopy for 5 years ago which was unremarkable. He notes that pain is worse with palpation and movement. - Related Data Allergies Allergy/AdvReac Type Severity Reaction Status Date / Time No Known Allergies Allergy Verified 01/23/21 09:20 Home Meds: Home Meds Rosuvastatin [Crestor] 10 mg PO BEDTIME 11/03/19 [History] lisinopriL [Zestril] 2.5 mg PO BEDTIME 11/03/19 [History] metFORMIN [Glucophage XR] 500 mg PO BEDTIME 11/03/19 [History] Amoxicillin/Clavulanate K [Augmentin 875-125 MG] 1 tab PO Q8H 10 Days #30 tablet 01/23/21 [Rx] Past Medical History Cardiovascular History: Reports: None, High Cholesterol Respiratory History: Reports: None Gastrointestinal History: Reports: None Genitourinary History: Reports: None Musculoskeletal History: Reports: Fracture Other Musculoskeletal History: neck Endocrine/Metabolic History: Reports: Diabetes, Type II - Infectious Disease History Infectious Disease History: Reports: C-Difficile, Measles, Mumps - Past Surgical History GI Surgical History: Reports: Appendectomy Social & Family History - Family History Family Medical History: No Pertinent Family History - Caffeine Use Caffeine Use: Reports: Coffee ED ROS GENERAL - Review of Systems Review Of Systems: Comprehensive ROS is negative, except as noted in HPI. ED EXAM, GENERAL - Physical Exam Exam: See Below Exam Limited By: No Limitations General Appearance: Alert, WD/WN, No Apparent Distress Throat/Mouth: Normal Voice, No Airway Compromise Head: Atraumatic, Normocephalic Neck: Normal Inspection Respiratory/Chest: No Respiratory Distress, Lungs Clear, Normal Breath Sounds, No Accessory Muscle Use Cardiovascular: Normal Peripheral Pulses, Regular Rate, Rhythm GI/Abdominal: Normal Bowel Sounds, Soft, Other (LLQP TTP with guarding) Extremities: Normal Inspection Neurological: Alert, Normal Gait Psychiatric: Normal Affect, Normal Mood Skin Exam: Warm, Dry, Intact, Normal Color Course - Vital Signs Last Recorded V/S: Last Vital Signs Temp 97.1 F 01/23/21 09:21 Pulse 61 01/23/21 09:21 Resp 18 01/23/21 09:21 BP 128/87 01/23/21 09:21 Pulse Ox 96 01/23/21 09:21 - Orders/Labs/Meds Orders: Active Orders 24 hr Category Date Time Status Sodium Chloride 0.9% [Saline Flush] Med 01/23/21 09:23 Active 10 ml FLUSH ASDIRECTED PRN Sodium Chloride 0.9% [Saline Flush] Med 01/23/21 09:23 Active 2.5 ml FLUSH ASDIRECTED PRN Saline Lock Insert [OM.PC] Stat Oth 01/23/21 09:23 Ordered Medication Orders Sodium Chloride (Sodium Chloride 0.9% 10 Ml Syringe) 10 ml FLUSH ASDIRECTED PRN PRN Reason: Keep Vein Open Last Admin: 01/23/21 11:16 Dose: 10 ml Documented by: ALETHA Sodium Chloride (Sodium Chloride 0.9% 2.5 Ml Syringe) 2.5 ml FLUSH ASDIRECTED PRN PRN Reason: Keep Vein Open Last Admin: 01/23/21 11:16 Dose: 2.5 ml Documented by: ALETHA Meds: Medications Generic Name Dose Route Start Last Admin Trade Name Freq PRN Reason Stop Dose Admin Sodium Chloride 10 ml 01/23/21 09:23 01/23/21 11:16 Sodium Chloride 0.9% 10 Ml Syringe FLUSH 10 ml ASDIRECTED PRN Administration Keep Vein Open Sodium Chloride 2.5 ml 01/23/21 09:23 01/23/21 11:16 Sodium Chloride 0.9% 2.5 Ml Syringe FLUSH 2.5 ml ASDIRECTED PRN Administration Keep Vein Open Discontinued Medications Generic Name Dose Route Start Last Admin Trade Name Freq PRN Reason Stop Dose Admin Iopamidol 100 ml 01/23/21 10:22 01/23/21 10:24 Iopamidol 755 Mg/Ml 500 Ml Multipack Bottle IVPUSH 01/23/21 10:23 100 ml ONETIME STA Administration - Re-Assessments/Exams Free Text/Narrative Re-Assessment/Exam: 01/23/21 09:54 Labs faxed over from clinic are unremarkable with white blood cell count of 10 and normal CMP. Urinalysis did not have any hematuria or leukocyte esterase. Will get CT imaging of the abdomen and pelvis and disposition accordingly. 01/23/21 11:21 CT imaging remarkable for mild diverticulitis. Will discharge with Augmentin and diverticulitis diet plan. Return precautions discussed. Departure - Departure Time of Disposition: 11:19 Disposition: Home, Self-Care 01 Condition: Good Clinical Impression: Diverticulitis - Discharge Information Prescriptions: Amoxicillin/Clavulanate K [Augmentin 875-125 MG] 1 tab PO Q8H 10 Days #30 tablet Instructions: Diverticulitis Referrals: Colt Alarcon MD [Primary Care Provider] - Forms: ED Department Discharge Additional Instructions: Your CT is remarkable for diverticulitis. This is an infection of the large intestine. Information for diverticulitis diet is provided an educational handout. I will also be prescribing you an antibiotic to take for the next several days. If pain is worsening or you have any new or concerning symptoms you are encouraged to come back to the emergency department for reassessment. The following information is given to patients seen in the emergency department who are being discharged to home. This information is to outline your options for follow-up care. We provide all patients seen in our emergency department with a follow-up referral. The need for follow-up, as well as the timing and circumstances, are variable depending upon the specifics of your emergency department visit. If you don't have a primary care physician on staff, we will provide you with a referral. We always advise you to contact your personal physician following an emergency department visit to inform them of the circumstance of the visit and for follow-up with them and/or the need for any referrals to a consulting specialist. The emergency department will also refer you to a specialist when appropriate. This referral assures that you have the opportunity for follow-up care with a specialist. All of these measure are taken in an effort to provide you with optimal care, which includes your follow-up. Under all circumstances we always encourage you to contact your private physician who remains a resource for coordinating your care. When calling for follow-up care, please make the office aware that this follow-up is from your recent emergency room visit. If for any reason you are refused follow-up, please contact the [facility] Emergency Department at and asked to speak to the emergency department charge nurse. Please follow up with your primary care physician. If you do not have a primary care physician, see below: [facility] [address] [place] [address] [phone] My [facility] [address] [place] [address] [facility] [address] [place] [id number] Sepsis Event Note (ED) - Focused Exam Vital Signs: Vital Signs Temp Pulse Resp BP Pulse Ox 01/23/21 09:21 97.1 F 61 18 128/87 96 - My Orders Last 24 Hours: My Active Orders 01/23/21 09:23 Sodium Chloride 0.9% [Saline Flush] 10 ml FLUSH ASDIRECTED PRN Sodium Chloride 0.9% [Saline Flush] 2.5 ml FLUSH ASDIRECTED PRN Saline Lock Insert [OM.PC] Stat - Assessment/Plan Last 24 Hours: My Active Orders 01/23/21 09:23 Sodium Chloride 0.9% [Saline Flush] 10 ml FLUSH ASDIRECTED PRN Sodium Chloride 0.9% [Saline Flush] 2.5 ml FLUSH ASDIRECTED PRN Saline Lock Insert [OM.PC] Stat
[2021-01-23] MEDS ORDERED: Sodium Chloride 0.9% 2.5 ML Syringe FLUSH PRN (09:23)
[2021-01-23] MEDS ORDERED: Sodium Chloride 0.9% 10 ML Syringe FLUSH PRN (09:23)
[2021-01-23] MEDS ORDERED: Iopamidol 755 MG/ML 500 ML Multipack Bottle IVPUSH STA (10:22)
--- NOTE | 2021-01-23 11:15 | CT ---
Indication: Left lower quadrant pain x4 days Technique: Volumetric multidetector CT images of the abdomen and pelvis were obtained after the administration of intravenous contrast. 100 cc Isovue 370 low osmolar intravenous contrast Comparison: None available. Findings: There is bibasilar atelectasis versus scar. There is demonstration of a small pulmonary nodule within the medial left lung base measuring 5.2 millimeters. The liver is enlarged with hepatic steatosis and hepatomegaly. The portal vein is patent. The gallbladder is unremarkable without evidence of radiopaque calculus. There is no significant common biliary ductal dilatation or abrupt cut off. The spleen is normal in enhancement and size. The stomach and duodenum are grossly unremarkable. The pancreas is normal in enhancement without significant atrophy. The adrenal glands are unremarkable. There is a ptotic appearing left kidney. There is no evidence of obstructive uropathy. There are small cortically based cysts within the right kidney. There is moderate stool seen throughout the colon with focal segmental colonic diverticulosis. There is minimal pericolonic inflammatory change of the distal descending/proximal sigmoid colon consistent with diverticulitis. The appendix is unremarkable. There is no significant mesenteric, retroperitoneal, or pelvic sidewall lymph nodes. The aorta is nonaneurysmal. There is no significant atherosclerotic disease appreciated. The solid pelvic viscera are grossly unremarkable. There is no free fluid or free air. There is mild diastasis of the rectus musculature with a small fat containing umbilical hernia. The lumbar vertebral body heights are grossly maintained with mild anterolisthesis of L4 on L5 there is spondylolysis of the inferior L4 and L5 articular processes. There is no evidence of acute osseous abnormality. Impression: Mild to moderate colonic diverticulosis with trace focal segmental thickening and pericolonic inflammation of the distal descending/proximal sigmoid colon likely representing low-grade diverticulitis. Otherwise, no definite acute intra-abdominal abnormality. Incidental note made of a subcentimeter pulmonary nodule in the left lung base. Please note that all CT scans at this facility use dose modulation, iterative reconstruction, and/or weight-based dosing when appropriate to reduce radiation dose to as low as reasonably achievable. Dictated by Ismael Trejo MD @ Jan 23 2021 11:04AM Signed by Dr. Ismael Trejo @ Jan 23 2021 11:12AM
== END 2021-01-23 11:32 | disposition home or self-care (01) ==
LOC: MW.ED 09:15
DX: K57.32 Diverticulitis of large intestine without perforation or abscess without bleeding (principal); E78.00 Pure hypercholesterolemia, unspecified; E11.9 Type 2 diabetes mellitus without complications; Z79.84 Long term (current) use of oral hypoglycemic drugs; Z79.899 Other long term (current) drug therapy
CPT/HCPCS: 74177; 99284; Q9967; 99283

== ENCOUNTER 2022-05-08 08:19 | Day surgery (SDC) | payer OTHER ==
[~2022-05-08 08:19] MED LIST: Lactated Ringers 1,000 ML IV SCH
[2022-05-08] MEDS ORDERED: Propofol 200 MG/20 ML SDV ONE (08:21)
[2022-05-08] MEDS ORDERED: fentaNYL 100 MCG/2 ML SDV ONE (08:21)
[2022-05-08] MEDS ORDERED: Lidocaine 2% 5 ML SDV ONE (08:26)
== END 2022-05-08 11:28 | disposition home or self-care (01) ==
LOC: MW.SDS 08:19
PROVIDERS: ATTEND Surgery
DX: Z12.11 Encounter for screening for malignant neoplasm of colon (principal); D12.2 Benign neoplasm of ascending colon; I10 Essential (primary) hypertension; E11.9 Type 2 diabetes mellitus without complications; E66.9 Obesity, unspecified; E78.00 Pure hypercholesterolemia, unspecified; Z80.0 Family history of malignant neoplasm of digestive organs; Z87.19 Personal history of other diseases of the digestive system; Z87.891 Personal history of nicotine dependence; Z79.899 Other long term (current) drug therapy; Z90.49 Acquired absence of other specified parts of digestive tract; Z79.84 Long term (current) use of oral hypoglycemic drugs; Z86.16 Personal history of COVID-19
CPT/HCPCS: 00812; 82947; J2704; J3010; J7120